=== PATIENT | male | born 1995 | race Caucasian/White ===

== ENCOUNTER 2018-10-09 08:51 | Outpatient (CLI) | payer OTHER | END 2018-10-09 08:52 | disposition home or self-care (01) | LOC: C.RADH 08:51 ==

== ENCOUNTER 2018-10-15 13:36 | Outpatient (CLI) | payer OTHER | END 2018-10-15 13:37 | disposition home or self-care (01) | LOC: C.RADH 13:36 | DX: M24.10 Other articular cartilage disorders, unspecified site (principal) ==

== ENCOUNTER 2018-10-26 09:30 | Day surgery (SDC) | payer OTHER ==
[2018-10-15 08:53] VITALS: BMI 29.9
[2018-10-26] MEDS ORDERED: ceFAZolin 1 gm in NS 2 GM/200 ML BAG IVPB ONE ×2 (11:05→15:40)
[2018-10-26] MEDS ORDERED: Bupivacaine HCl 0.5% PF (10 ml) Inj ONE ×2 (11:05→15:40)
[2018-10-26] MEDS ORDERED: HEPARIN-NS 5,000 UNITS/500 ML 0 UNIT/0 ML BAG IV ONE (11:05)
[2018-10-26] MEDS ORDERED: Lidocaine Hydrochloride 5 ML INJ ONE (11:05)
[2018-10-26] MEDS ORDERED: Midazolam 2 MG/2 ML VIAL ONE ×2 (11:36→11:53)
[2018-10-26] MEDS ORDERED: Propofol 10 mg/ml Inj (20 ML) ONE ×2 (11:36→11:52)
[2018-10-26] MEDS ORDERED: Neostigmine 1:1000 (1 mg/ml) Inj ONE (15:45)
[2018-10-26] MEDS ORDERED: Morphine 4 MG/ML VIAL ONE (15:54)
[2018-10-26] MEDS ORDERED: Ropivacaine 0.5% PF (20 ml) inj INJ ONE (16:29)
--- NOTE | 2018-10-26 16:36 | PCM.SURG1 ---
Surgeon's Initial Post Op Note - Surgeon's Notes Surgeon: Dr. Pollock Cardiac Rehab Nurse: Dr. Kirsty Corbett, Dr. Barrios Type of Anesthesia: General LMA, Block Regional Pre-Operative Diagnosis: Right ankle painfil equinus secondary to post traumatic osteophytic changes to anterior mortise, loose bodies in ankle joint, Osteochondral lesion to talar dome, syndesmotic rupture Operative Findings: Osteochondral plug, Arthrex Biocartilage, Fibrin glue, 3.5 x 55mm screws (x2), fibular plate and screws, tightrope. Post-Operative Diagnosis: same Operation Performed: 1) Right ankle arthroscopic debridement of synovitis, excision of loosebodies. 2) Right ankle arthrotomy. 3) Right ankle primary repair of Osteochondral lesion of talus. 4) Right ankle repair of syndesmotic ligament using Arthrex Tightrope Specimen/Specimens Removed: Right aknle loosebodies (x12) Estimated Blood Loss: EBL {In ML}: 60 Blood Products Given: N/A Drains Used: No Drains Post-Op Condition: Good Date of Surgery/Procedure: 10/26/18 Time of Surgery/Procedure: 11:00
[2018-10-26] MEDS ORDERED: HYDROmorphone 0.5 mg/0.5 ml ISec IVP PRN (16:38)
--- NOTE | 2018-10-26 16:41 | RAD ---
Date of service: 10/26/2018 PROCEDURE: Intraoperative Fluoroscopy. HISTORY: RT ANKLE LIGAMENT TEAR FINDINGS: Fluoroscopic assistance was provided. Fluoroscopy time = 57.7 sec. Radiation dose = 0.94751 mGy-cm. Please refer to the operative report from [facility].
[2018-10-26] MEDS ORDERED: Oxycodone/Acetaminophen 5/325 mg Tab PO PRN ×2 (16:45)
--- NOTE | 2018-10-26 17:03 | PCM.ANESB2 ---
Popliteal Nerve Block - Popliteal Nerve Block Date of Procedure: 10/26/18 Anesthesiologist: Ankit Pre-Procedure Diagnosis: s/p right ankle ORIF Post-Procedure Diagnosis: same Procedure Performed: Popliteal Nerve Block Right - Procedure Popliteal Nerve Block: This procedure was explained to the patient that it is for post-operative pain management. Consent was obtained after a thorough discussion with the patient regarding the benefits and possible complications of local anesthetic block of the sciatic nerve at the popliteal level. Time-out was held with the PACU nurse to confirm the correct surgery and the appropriate block. Patient's operative leg was gently raised and supported and the groove in between the biceps femoris and vastus lateralis muscles was carefully palpated. The skin approximately 8cm above the popliteal crease was then marked. The ultrasound transducer was then applied to the posterior thigh approximately 8cm above the popliteal crease in the transverse plane and the sciatic nerve before its division was visualized lateral to the popliteal artery and in between the bicep femoris and semimembranosus/semitendinosus muscles. After identification, the lateral portion of the thigh was prepped with chloraprep. At this point, a # 21 gauge Stimuplex insulated 4 inch needle was inserted into pre-marked area and advanced in a perpendicular direction. The needle was inserted above the ultrasound transducer in-plane towards the sciatic nerve in a [id number] direction. Needle advancement was performed carefully under direct ultrasound visualization. After repeated negative aspiration, 2cc of 0.5% Ropivacaine was injected and this was flowed with 23cc of 0.5% Ropivacaine. Negative intermittent aspiration, no heme or paresthesia. Under ultrasound guidance the local anesthetics were observed surrounding sciatic nerve . The needle was removed intact and sterile dressing was applied. The patient tolerated the popliteal nerve block well with stable vital signs.
--- NOTE | 2018-10-26 17:28 | RAD ---
Date of service: 10/26/2018 PROCEDURE: Right Ankle Radiographs. HISTORY: s/p right ankle surgery COMPARISON: 10/15/2018. TECHNIQUE: 3 views obtained. FINDINGS: BONES: Orthopedic hardware identified distal tibia and fibula. Major fracture fragments anatomically aligned. No evidence of orthopedic hardware failure. SOFT TISSUES: Normal. OTHER FINDINGS: None. IMPRESSION: Satisfactory postoperative status.
[2018-10-26 18:23] VITALS: RESP 20; O2SAT 99
[2018-10-26 18:57] VITALS: BP 106/64; PULSE 98; TEMP 97.8
--- NOTE | 2018-10-28 16:07 | PCM.OP ---
Operative Report - Operative Report Date of Surgery/Procedure: 10/26/18 Time of Surgery/Procedure: 11:00 Surgeon: Dr. Phill ALEJANDRO Door Person: Primary: Dr. Kirsty Corbett PGY3, secondary: Dr. 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 Patient has exhausted conservative treatments and requires surgical intervention to treat the extreme pain he has to his right ankle. The patient signed the consent after careful explanation of risks, benefits, complication and alternatives for surgical procedure. No guarantees were given nor implied. 1 gram of ancef IV was given to the pt hour prior to the procedure. NPO status was confirmed prior to taking pt to the OR. Operative Findings: Preparation: The patient was brought to the operating room and placed on the operating room table in supine position. A well-padded pneumatic thigh tourniquet was placed to the patient's Right lower extremity. All leg hair was trimmed to level of skin distal from knee without incident. After induction of g eneral anesthesia, the Right lower extremity was then prepped and draped in usual sterile manner. Esmarch was utilized to exsanguinate the patient's Right foot. Pneumatic ankle tourniquet was then inflated to 350 mmHg and procedure began. Procedure/Operation Description: Name of Procedure: 1) Right ankle arthroscopic debridement of painful joint synovitis 2) Right ankle medial malleolar arthrotomy for joint exploration with removal of loosebodies, fixed with internal fixations 3) Right ankle Osteochondral Allograft Transfer to Talus with lateral malleolar takedown approach 4) Right ankle repair of syndesmotic ligament using Arthrex Tightrope PROCEDURE #1: Right ankle Arthroscopic debridement of joint synovitis Attention was then directed to the anterior aspect of the patients Right ankle. Utilizing a sterile surgical marking pen, anatomical landmarks were marked such as the tibialis anterior tendon, peroneus tertius and the medial and lateral gutters of the ankle joint. Next, the ankle joint was infiltrated with 15 ml of sterile saline without epinephrine. Next, utilizing a #11 blade, a small stab incision was created as a medial portal, medial to the tibialis anterior tendon. A small hemostat was used to bluntly dissect down to the level of the ankle joint. With the foot in dorsiflexed position to protect the articular surface of talus, the ankle joint was entered through the medial portal with a probe. Next, a 2.7 scope was entered into the medial portal. There was an abundance of hypertrophic synovium as well as fibrous bands within the ankle joint. A lateral portal was then created utilizing a #11 blade and a hemostat down to the level of the ankle joint. The trocar was placed into the lateral portal and triangulated along with the 2.7mm scope. At this time, a 3.5mm aggressive shaver was inserted into the lateral portal and debridement of the hypertrophic synovium and fibrous bands began. The ankle joint was inspected for any osteochondral defects and loose bodies. Osteochondral lesion of talus was noted to diffuse area of talar dome and abundance of loose bodies throughout the entire ankle joint, necessitating open ankle arthrotomy to explore the joint. Once the debridement of lateral gutter was completed, the scope and the shaver were switches of their sides and the same debridement of medial gutter was performed. Next, the scope and the shaver were removed from the patients right ankle joint. The skin was reapproximated and copated with #4-0 Prolene. PROCEDURE #2: Right ankle medial malleolar arthrotomy for joint exploration with removal of loosebodies, fixed with internal fixations Attention was directed to the medial aspect of the distal tibia of the right lower extremity. Utilizing #15 blade an approximately 6 cm curved linear incision was made overlying the tibia staying center right over the bone. At this time, the incision was carried deep using sharp and blunt dissection, taking care to retract all vital neurovascular structures. All bleeders were cauterized and ligated as necessary. At the level of the periosteum, a sharp periosteal incision was made overlying the distal tibia to allow exposure to the medial malleolus. The periosteum was reflected with a sharp periosteal elevator. At this time, utilizing a sagittal saw blade on power, an arthrotomy cut was made approximately 3.5cm proximal to the ankle joint mortise in an inverted V shape. The distal medial malleolus was reflected distally and revealed medial aspect of talar dome. Abundance of osseous loose bodies were found within the joint. Total of 12 loose bodies were removed from the ankle joint and were sent to pathology lab. No lesion of talar dome was visualized from the medial aspect of talar dome. The surgical site was flushed with copious amount of sterile normal saline. At this time, utilizing bone clamp, the osteotomy site was reduced brining the distal medial malleolus back out to length and was temporary fixated with two k- wires. Next, based on AO technique and principles, the osteotomy site was fixed with two and 3.5 mm cancellous screws, providing excellent compression. Next temporary fixated k-wires were removed. The screw locations were confirmed under intraoperative fluoroscopy. The surgical site was irrigated with copious amount of normal sterile saline. The surgical site was packed with sterile saline soaked gauze until closed with suture. PROCEDURE #3: Right ankle repair of OCD with Osteochondral Allograft Transfer via lateral malleolar takedown approach Attention was directed to the lateral aspect of right ankle. An approximately 7 cm linear longitudinal incision was made overlying fibular staying central right over the bone. At this time, the incision was carried deep using sharp and blunt dissection, taking care to retract all vital neurovascular structures. All bleeders were cauterized and ligated as necessary. At the level of the periosteum, a sharp periosteal incision was made overlying the distal fibula to allow exposure to the lateral malleolus. At this time, utilizing a sagittal saw blade on power, an osteotomy cut was made approximately 4 cm proximal to the ankle joint mortise in an oblique fashion oriented from proximal lateral to distal medial direction. The distal lateral malleolus was reflected distally and revealed lateral aspect of talar dome. Multiple areas of talar dome lesion was visualized at the lateral shoulder of talar dome, measuring approximately 1cm x 1cm largest, then two other smaller lesions each measuring less than 5mm in diameter. A 1 cm drill from [employer] Backfill plug system was utilized to drill a hole from lateral aspect of the talus central over the largest lesion. A cancellous Backfill Plug with cartilage on top of right size was carefully fitted into the pre-drilled hole from lateral to medial direction. A plastic tamper was used to carefully fit the plug into the hole flush to the articular surface of talus. A Firm placement was visually confirmed. Next, Arthrex Biocartilage extracellular matrix paste was prepared and applied to smaller damaged areas of the talus. Next, Fibrin glue was applied on top of the talar area with Biocartilage application. Firm placement and setting of glue was visually confirmed. The surgical site was carefully and gently flushed with copious amount of sterile normal saline so as to not washout any bio materials applied. Next, utilizing a bone clamp, the fibular osteotomy site was reduced brining the distal fibula back out to length. At this time, following AO principles and techniques, a lag screw was placed from anteroproximal to posterodistal direction across the osteotomy site with excellent compression noted utilizing 3.5 cortex screw. At this time, an Arthres fibular locking plate was placed over the fracture site and utilizing standard AO tachniques and principles, holes were filled with 2.7 locking screws and 3.5 cortex screws. At this time, multiple irrigations were performed at the surgical site. All screw locations were confirmed under the intra operative fluoroscopy. Next, under intra-operative fluoroscopy, inversion stress test of right ankle was performed and diastasis of the tibia fibular space was noted, indicating syndesmotic ligament rupture. PROCEDURE #4: Right ankle repair of syndesmotic ligament with Arthrex Tightrope Next, utilizing intraoperative fluoroscopy, the guidewire from the Arthrex TightRope System was passed through the lateral aspect of the fibula through the entirety of the fibula and through the medial and lateral cortices of the tibia and exited the medial aspect of the patients right ankle. Proper positioning of the guidewire was verified utilizing intraoperative fluoroscopy. Next, the cannulated drill bit from the Arthrex Tightrope system was placed over the guidewire and the medial and lateral cortices of the fibula were drilled and the medial and lateral cortices of the tibia were drilled. The drill bit and guidewire were then removed from the surgical field. Next, the needle from the Tightrope system was passed through the lateral and medial cortices of the fibula and through the lateral and medial cortices of the tibia and exited out the medial aspect of the patients right ankle. The needle was then cut free from the suture and the medial and lateral buttons of the Arthrex Tightrope system were then manipulated utilizing the sutures to sit flush against the medial aspect of the tibial cortex and the lateral aspect of the fibula. Proper position of the buttons was verified utilizing intraoperative fluoroscopy. The extra sutures were then cut and removed from the surgical fi eld. All deep soft tissues of right ankle were reapproximated with #2-0, #3-0 and #4- 0 Vicryl. All skin incisions were reapproximated with #4-0 Prolene in horizontal mattress suture technique. Medial aspect of the right ankle was infiltrated with 10ml of 0.5% Marcaine plain for Saphenous block. Right lower extremity was dressed with Betadine soaked adaptic, 4x4, Kerlix and posterior splint. The attending was present during the entire case. Estimated Blood Loss: <50 mL Blood Replaced: none Drains: none Complications: none Specimen: Right ankle osseous loose bodies Discharge & Condition: Postoperative Condition: The patient tolerated the anesthesia and procedure well and was escorted to the recovery room with vital signs stable and neurovascular status intact to the Right foot. The patient received regional popliteal block by the anesthesiologist after the case was over. This patient will follow up with Dr. Pollock.
== END 2018-10-26 18:45 | disposition home or self-care (01) ==
LOC: C.SDS 09:30
PROVIDERS: ATTEND Podiatrist Foot & Ankle Surgery
DX: M25.871 Other specified joint disorders, right ankle and foot (principal); M93.279 Osteochondritis dissecans, unspecified ankle and joints of foot; M19.071 Primary osteoarthritis, right ankle and foot; M65.9 Synovitis and tenosynovitis, unspecified
CPT/HCPCS: 27698; 29894; 29897; 73610; 76000; J0690; J1885; J2250; J2270; J2405; J2704; J2710; J3010

== ENCOUNTER 2018-11-19 11:03 | Outpatient (CLI) | payer OTHER | END 2018-11-19 11:04 | disposition home or self-care (01) | LOC: C.RADH 11:03 | DX: M24.10 Other articular cartilage disorders, unspecified site (principal); Z09 Encounter for follow-up examination after completed treatment for conditions other than malignant neoplasm ==